=== PATIENT | female | born 1990 | race Caucasian/White ===

== ENCOUNTER → 2016-09-15 | Outpatient (REF) | payer OTHER | LOC: M LAB REF 17:14 | PROVIDERS: ATTEND Physician Assistant Medical | DX: N39.0 Urinary tract infection, site not specified (principal); R35.0 Frequency of micturition ==

== ENCOUNTER → 2017-12-22 | Outpatient (CLI) | payer OTHER | LOC: M RAD 11:02 | DX: Z30.431 Encounter for routine checking of intrauterine contraceptive device (principal) | CPT/HCPCS: 76856 ==

== ENCOUNTER → 2018-01-23 | Outpatient (CLI) | payer OTHER ==
[2018-01-23 13:32] LABS: BASO % 0.3 % (0.0-1.0); EOS # 0.1 10^3/uL (0.0-0.50); EOS % 1.5 % (0.0-3.0); HEMOGLOBIN 16.1 g/dl (12.0-15.5); IMMATURE GRANULOCYTE % 0.2 % (0-3.0); LYMPH # 2.2 10^3/uL (1.5-6.5); LYMPH % 36.5 % (24.0-44.0); MEAN CORPUSCULAR HEMOGLOBIN 30.1 pg (27.0-33.0); MEAN CORPUSCULAR HGB CONC 33.5 g/dl (32.0-36.5); MEAN CORPUSCULAR VOLUME 89.7 fl (80.0-96.0); MONO # 0.7 10^3/uL (0.0-0.8); MONO % 11.5 % (0.0-5.0); PLATELET COUNT, AUTOMATED 323 10^3/uL (150-450); RED BLOOD COUNT 5.35 10^6/uL (4.00-5.40); RED CELL DISTRIBUTION WIDTH 11.9 % (11.5-14.5); WHITE BLOOD COUNT 5.9 10^3/uL (4.0-10.0)
[2018-01-23 14:16] LABS: ANION GAP 6 MEQ/L (8-16); BLOOD UREA NITROGEN 7 MG/DL (7-18); CALCIUM LEVEL 8.9 MG/DL (8.5-10.1); CARBON DIOXIDE LEVEL 28 MEQ/L (21-32); CHLORIDE LEVEL 104 MEQ/L (98-107); CREATININE FOR GFR 0.73 MG/DL (0.55-1.30); GLOMERULAR FILTRATION RATE > 60.0 (>60); GLUCOSE, FASTING 77 MG/DL (70-100); SODIUM LEVEL 138 MEQ/L (136-145); THYROID STIMULATING HORMONE 0.331 uIU/ML (0.358-3.740)
== END ==
LOC: M LAB 12:35
DX: R51 Headache (principal)
CPT/HCPCS: 84443

== ENCOUNTER → 2018-01-25 | Outpatient (CLI) | payer OTHER ==
[2018-01-25 11:01] LABS: FREE T4 0.86 NG/DL (0.76-1.46)
[2018-01-25 11:01] LABS: THYROID STIMULATING HORMONE 0.592 uIU/ML (0.358-3.740)
== END ==
LOC: M LAB 09:25
DX: R94.6 Abnormal results of thyroid function studies (principal)
CPT/HCPCS: 84443

== ENCOUNTER 2018-10-21 09:18 | Emergency (ER) | payer OTHER ==
[~2018-10-21] VITALS: Ht 175.3 cm; Wt 63.6 kg
[2018-10-21 09:18] VITALS: BP 155/70
--- NOTE | 2018-10-21 10:13 | REP ---
Clinical: Trauma. Technique: AP, lateral, bilateral oblique views of the right ankle. Findings: No acute fracture or dislocation. Mild swelling. A 2 mm foreign body in the subcutaneous tissues posteriorly over the calcaneus. Impression: No acute fracture dislocation. Small 2 mm foreign body possibly chronic. Electronically Signed by Jose Reno MD 10/21/2018 10:05 A
--- NOTE | 2018-10-21 10:14 | REP ---
Clinical: Trauma. Technique: AP, lateral, right tibia / fibula Findings: The osseous structures and joint spaces are intact and normal. There is no evidence for acute fracture or dislocation. Surrounding soft tissues are unremarkable. No subcutaneous emphysema or radiodense foreign body. Impression: No acute fracture or dislocation. Electronically Signed by Jose Reno MD 10/21/2018 10:05 A
--- NOTE | 2018-10-23 13:16 | ED PDOC ---
Post-Departure Follow-Up dr kim faxed formal report of right ankle film for fu Hank Worley MD Oct 23, 2018 13:16
== END 2018-10-21 10:57 | disposition home or self-care (01) ==
LOC: M ED 10:27
DX: S93.401A Sprain of unspecified ligament of right ankle, initial encounter (principal); S81.811A Laceration without foreign body, right lower leg, initial encounter; S80.212A Abrasion, left knee, initial encounter; W01.198A Fall on same level from slipping, tripping and stumbling with subsequent striking against other object, initial encounter; Y92.832 Beach as the place of occurrence of the external cause; Z18.9 Retained foreign body fragments, unspecified material; E16.2 Hypoglycemia, unspecified; F17.210 Nicotine dependence, cigarettes, uncomplicated

== ENCOUNTER → 2018-11-08 | Outpatient (CLI) | payer OTHER ==
--- NOTE | 2018-11-09 02:18 | REP ---
Clinical: Right wrist pain. Technique: AP, lateral, bilateral oblique views. Findings: The carpal bones, surrounding osseous structures, soft tissues, and joint spaces are normal. There is no evidence for acute fracture or dislocation. No subcutaneous emphysema or radiodense foreign body. Impression: Normal wrist series. No acute fracture or dislocation Electronically Signed by Jose Reno MD 11/09/2018 02:09 A
== END ==
LOC: M WUC 14:12
PROVIDERS: ATTEND Physician Assistant
DX: M25.431 Effusion, right wrist (principal)

== ENCOUNTER → 2019-02-21 | Outpatient (REF) | payer OTHER ==
[2019-02-21 12:46] LABS: HEMATOCRIT 36.8 % (36.0-47.0); HEMOGLOBIN 12.2 g/dl (12.0-15.5); MEAN CORPUSCULAR HEMOGLOBIN 29.8 pg (27.0-33.0); MEAN CORPUSCULAR HGB CONC 33.2 g/dl (32.0-36.5); MEAN CORPUSCULAR VOLUME 89.8 fl (80.0-96.0); PLATELET COUNT, AUTOMATED 335 10^3/uL (150-450); WHITE BLOOD COUNT 6.1 10^3/uL (4.0-10.0)
[2019-02-21 13:35] LABS: HCG, SERUM QUANTITATIVE 129053 MIU/ML; RUBELLA IgG QUALITATIVE IMMUNE (IMMUNE)
[2019-02-21 13:44] LABS: HIV 1&2 SCREEN CENTAUR NEGATIVE (NEGATIVE)
== END ==
LOC: M LAB REF 12:21
PROVIDERS: ATTEND Nurse Practitioner Women's Health
DX: O36.80X0 Pregnancy with inconclusive fetal viability, not applicable or unspecified (principal); Z3A.00 Weeks of gestation of pregnancy not specified

== ENCOUNTER → 2019-03-22 | Outpatient (REF) | payer OTHER | LOC: M LAB REF 12:27 | PROVIDERS: ATTEND Nurse Practitioner Women's Health | DX: Z34.82 Encounter for supervision of other normal pregnancy, second trimester (principal); Z3A.00 Weeks of gestation of pregnancy not specified ==

== ENCOUNTER → 2019-07-13 | Outpatient (CLI) | payer OTHER ==
[2019-07-13 21:23] LABS: HEMATOCRIT 36.9 % (36.0-47.0); MEAN CORPUSCULAR HEMOGLOBIN 30.1 pg (27.0-33.0); MEAN CORPUSCULAR HGB CONC 32.5 g/dl (32.0-36.5); MEAN CORPUSCULAR VOLUME 92.5 fl (80.0-96.0); PLATELET COUNT, AUTOMATED 293 10^3/uL (150-450); RED BLOOD COUNT 3.99 10^6/uL (4.00-5.40); WHITE BLOOD COUNT 9.7 10^3/uL (4.0-10.0)
== END ==
LOC: M WUC 15:42
PROVIDERS: ATTEND Obstetrics & Gynecology
DX: Z34.83 Encounter for supervision of other normal pregnancy, third trimester (principal); Z3A.00 Weeks of gestation of pregnancy not specified

== ENCOUNTER → 2019-08-28 | Outpatient (REF) | payer OTHER ==
[~2019-08-28] MED LIST: IBUP80TA PO; MULTTAB20 PO; PERCOCET PO
== END ==
LOC: M LAB REF 12:19
PROVIDERS: ATTEND Obstetrics & Gynecology
DX: Z34.83 Encounter for supervision of other normal pregnancy, third trimester (principal)

== ENCOUNTER → 2019-09-19 | Outpatient (CLI) | payer OTHER ==
--- NOTE | 2019-09-21 04:45 | REP ---
Clinical: well-being Comparison: 05/01/2019 . Findings: Examination demonstrates a single live intrauterine in cephalic presentation. motion is identified by technologist. Placenta is noted fundal and grade I I I without evidence for placenta previa or abruption. Amniotic fluid volume is normal. Cervix measures 3.6 cm in length and appears closed. No evidence for nuchal cord. Gestational age by history at 40 weeks. FHR equals 136 beats per minute. Biophysical profile score: 8/8 Amniotic fluid index: 12.2 cm Impression: Single live advanced gestation in cephalic presentation. Biophysical profile score and amniotic fluid volume are normal.
== END ==
LOC: M WHC 14:55
PROVIDERS: ATTEND Obstetrics & Gynecology
DX: Z36.89 Encounter for other specified antenatal screening (principal); Z3A.40 40 weeks gestation of pregnancy

== ENCOUNTER 2019-09-21 08:11 | Inpatient (IN) | payer OTHER ==
[~2019-09-21] VITALS: Ht 175.3 cm; Wt 75.6 kg
[2019-09-21] VITALS (8 sets, daily range): BP systolic 112–125; BP diastolic 59–82
[~2019-09-21 08:11] MED LIST changes: -IBUP80TA PO; -PERCOCET PO
[2019-09-21] MEDS ORDERED: BICITRA 30ML SOLN UDC PO ONE (08:30)
[2019-09-21 09:10] LABS: HEMATOCRIT 36.4 % (36.0-47.0); HEMOGLOBIN 12.6 g/dl (12.0-15.5); MEAN CORPUSCULAR HEMOGLOBIN 30.4 pg (27.0-33.0); MEAN CORPUSCULAR HGB CONC 34.6 g/dl (32.0-36.5); MEAN CORPUSCULAR VOLUME 87.7 fl (80.0-96.0); PLATELET COUNT, AUTOMATED 232 10^3/uL (150-450); RED BLOOD COUNT 4.15 10^6/uL (4.00-5.40); WHITE BLOOD COUNT 6.5 10^3/uL (4.0-10.0)
[2019-09-21] MEDS ORDERED: LR 1,000 ML IV ONE (09:30)
[2019-09-21] MEDS ORDERED: LR 1,000 ML IV SCH ×2 (09:30→17:45)
[2019-09-21] MEDS ORDERED: ceFAZolin SOD 2 GM in IV 1 EA IV ONE (10:30)
[2019-09-21] MEDS ORDERED: NALOXONE INJ 0.4MG/1ML VIAL (J2310 PER 1MG) IV PRN ×2 (11:40)
[2019-09-21] MEDS ORDERED: NALBUPHINE HCL 10 MG/ML AMP (J2300) IV PRN (11:40)
[2019-09-21] MEDS ORDERED: ONDANSETRON 4MG/2ML VIAL IV PRN ×2 (11:40→12:45)
[2019-09-21] MEDS ORDERED: diphenhydrAMINE 50MG/ML VIAL (J1200) IV PRN (11:40)
[2019-09-21] MEDS ORDERED: OXYTOCIN 30 UNITS IN 0.9% NaCl 500ML IV BAG (J2590) As Ordered ONE ×2 (12:04→13:14)
[2019-09-21] MEDS ORDERED: MORPHINE PRES-FREE INJ 10 MG/10 ML VIAL (J2274) As Ordered ONE (12:04)
[2019-09-21] MEDS ORDERED: dexameTHASONE 4 MG/ML 1ML VIAL (J1100 PER 1MG) As Ordered ONE (12:04)
[2019-09-21] MEDS ORDERED: ONDANSETRON 4MG/2ML VIAL As Ordered ONE ×2 (12:04→13:44)
[2019-09-21] MEDS ORDERED: KETOROLAC 60 MG/2 ML VIAL As Ordered ONE (12:04)
[2019-09-21 12:08] LABS: CORD GAS ABE V -1.1; CORD GAS HCO3 V 24.9 MEQ/L; CORD GAS PCO2 V 46.4 mmHg; CORD GAS PH V 7.348 UNITS; CORD GAS PO2 V 42.2 mmHg; CORD GAS SBC V 23.2 MEQ/L; CORD GAS TCO2 V 26.4 MEQ/L
[2019-09-21] MEDS ORDERED: OXYTOCIN DRIP 30 UNITS in IV 1 EA IV SCH (12:29)
[2019-09-21] MEDS ORDERED: RHOGAM 300 MCG (1500 IU) INJ (J2790) IM SCH (12:30)
[2019-09-21] MEDS ORDERED: MEASLES,MUMPS,RUBELLA VACCINE INJ (MMR-II) (90707) SC SCH (12:30)
[2019-09-21] MEDS ORDERED: PERCOCET 5MG/325MG TAB PO PRN (12:30)
[2019-09-21] MEDS ORDERED: oxyCODONE 5MG TAB PO PRN (12:45)
[2019-09-21] MEDS ORDERED: fentaNYL 100 MCG/2 ML INJECTION (J3010) IV PRN (12:45)
[2019-09-21] MEDS: KETOROLAC 30 MG/ML 1ML VIAL IV SCH (17:51)
[2019-09-21] MEDS: METOCLOPRAMIDE INJ 10MG/2ML VIAL (J2765 PER 1) IV PRN (17:51)
[2019-09-22] MEDS: METOCLOPRAMIDE INJ 10MG/2ML VIAL (J2765 PER 1) IV PRN (00:09)
[2019-09-22] MEDS: KETOROLAC 30 MG/ML 1ML VIAL IV SCH ×3 (00:09→07:10)
[2019-09-22 02:00] VITALS: BP 116/64
[2019-09-22 06:00] VITALS: BP 110/77
[2019-09-22] MEDS ORDERED: ceFAZolin SOD 2 GM in IV 1 EA IV ONE (06:00)
[2019-09-22 07:01] LABS: HEMOGLOBIN 11.8 g/dl (12.0-15.5); MEAN CORPUSCULAR HEMOGLOBIN 30.8 pg (27.0-33.0); MEAN CORPUSCULAR HGB CONC 34.7 g/dl (32.0-36.5); MEAN CORPUSCULAR VOLUME 88.8 fl (80.0-96.0); PLATELET COUNT, AUTOMATED 215 10^3/uL (150-450); RED BLOOD COUNT 3.83 10^6/uL (4.00-5.40); WHITE BLOOD COUNT 14.1 10^3/uL (4.0-10.0)
--- NOTE | 2019-09-22 07:24 | IPNPDOC ---
Text Note Date of Service The patient was seen on 09/22/19. NOTE PO #1 Feels well. Adequate pain management. Tolerating regular diet in small amounts. Voiding. VSS, afebrile,normotensive Breasts soft, nipples intact Dressing removed. Steristrips intact. Wound well approximated without s/s infection Fundus firm Lochia rubra scant without odor PO #1 Routine care. Anticipate D/C in am VS,Fishbone, I+O VS, Fishbone, I+O Laboratory Tests 09/21/19 08:57 09/22/19 06:29 Vital Signs Date Time Temp Pulse Resp B/P (MAP) Pulse Ox O2 Delivery O2 Flow Rate FiO2 09/22/19 06:00 97.5 59 16 110/77 (88) 100 Room Air I&O- Last 24 Hours up to 6 AM 09/22/19 06:00 Intake Total 3046 ml Output Total 3225 ml Balance -179 ml Radha Cuellar CNM Sep 22, 2019 07:24
[2019-09-22] MEDS: PRENATAL VITAMINS CHEWABLE TABLET PO SCH (08:40)
[2019-09-22 10:00] VITALS: BP 117/68
[2019-09-22 14:00] VITALS: BP 104/66
[2019-09-22] MEDS: IBUPROFEN 800 MG TAB PO SCH ×2 (14:35→21:40)
[2019-09-22 18:00] VITALS: BP 113/67
[2019-09-22 21:56] VITALS: BP 115/65
[2019-09-23 05:41] VITALS: BP 119/75
[2019-09-23] MEDS: IBUPROFEN 800 MG TAB PO SCH (05:59)
[2019-09-23] MEDS: PRENATAL VITAMINS CHEWABLE TABLET PO SCH (09:34)
[2019-09-23] MEDS ORDERED: IBUP80TA PO (10:37)
[2019-09-23] MEDS ORDERED: PERCOCET PO (10:37)
--- NOTE | 2019-09-23 10:53 | DS.PDOC ---
Discharge Summary General Date of Admission Sep 21, 2019 at 08:11 Date of Discharge 09/23/19 Attending Physician: Jason Holloway DO Discharge Summary PROCEDURES PERFORMED DURING STAY: section and spinal anesthesia. ADMITTING DIAGNOSES: 1. Repeat section at term. DISCHARGE DIAGNOSES: 1 . Repeat section at term. COMPLICATIONS/CHIEF COMPLAINT: Previous Section, Term . HISTORY OF PRESENT ILLNESS: 29-year-old who presented for scheduled section for which was uncomplicated. HOSPITAL COURSE:. She did well and postoperatively. By post-operative day #2, had met all discharge criteria. Patient was discharged home in stable condition. DISCHARGE MEDICATIONS: Please see below. ALLERGIES: Please see below. PHYSICAL EXAMINATION ON DISCHARGE: VITAL SIGNS: Please see below. GENERAL:. Well-appearing ABDOMINAL EXAMINATION: Soft, appropriately tender. Fundus is below umbilicus. Incision was clean, dry, intact, well approximated with Steri-Strips EXTREMITIES: Negative calf tenderness LABORATORY DATA: Please see below. ACTIVITY: As tolerated. DIET: Regular DISCHARGE PLAN:. Discharge home with follow-up with Dr. Holloway and 2 weeks DISCHARGE INSTRUCTIONS: 1. Follow-up in 2 weeks for incision check. 2. Remain on pelvic rest for 6 weeks. 3. Reports severe pain, heavy vaginal bleeding, fever, incisional issues. DISCHARGE CONDITION: Stable. Vital Signs/I&Os Vital Signs Date Time Temp Pulse Resp B/P (MAP) Pulse Ox O2 Delivery O2 Flow Rate FiO2 09/23/19 05:41 97.7 67 18 119/75 (90) 100 09/22/19 18:00 Room Air Microbiology Microbiology 09/21/19 Respiratory Virus Panel (PCR) ([facility]) - Final, Complete Discharge Medications Scheduled Ibuprofen (Ibuprofen) 800 Mg Tablet, 800 MG PO Q8H No122/Iron/Folic Acid ( Multi Tablet) 1 Each Tablet, 1 TAB PO DAILY, (Reported) Scheduled PRN Oxycodone/Acetaminophen (Oxycodone-Acetaminophen 5-325) 1 Each Tablet, 1-2 TAB PO Q6HP PRN for MILD/MODERATE PAIN (PS 1-7) Allergies Coded Allergies: No Known Allergies (Unverified , 09/20/19) ADRIAN ONEAL MD. Sep 23, 2019 10:53
== END 2019-09-23 14:25 | disposition home or self-care (01) | DRG 540 ==
LOC: M LDI 08:11 → M OBS 14:24
PROVIDERS: ADMIT Obstetrics & Gynecology; ATTEND Obstetrics & Gynecology
PROC: 10D00Z1 Extraction of Products of Conception, Low, Open Approach (ICD-10-PCS; principal; 2019-09-21 09:30)
DX: O34.211 Maternal care for low transverse scar from previous cesarean delivery (principal); Z37.0 Single live birth; Z3A.39 39 weeks gestation of pregnancy

== ENCOUNTER → 2020-02-11 | Outpatient (CLI) | payer SELFPAY ==
[~2020-02-11] MED LIST changes: +IBUP80TA PO; +PERCOCET PO
== END ==
LOC: M LABSMTC 13:17
PROVIDERS: ATTEND Pediatrics
DX: Z20.828 Contact with and (suspected) exposure to other viral communicable diseases (principal)

== ENCOUNTER → 2020-03-08 | Outpatient (CLI) | payer SELFPAY | LOC: M LABSMTC 11:01 | PROVIDERS: ATTEND Pediatrics | DX: Z20.828 Contact with and (suspected) exposure to other viral communicable diseases (principal) ==

== ENCOUNTER 2020-07-28 19:32 | Emergency (ER) | payer OTHER, SELFPAY ==
[~2020-07-28] VITALS: Ht 175.3 cm; Wt 65.6 kg
[2020-07-28] MEDS ORDERED: PYRI1TAB5 PO (21:33)
[2020-07-28] MEDS ORDERED: BACT800T5 PO (21:33)
[2020-07-28] MEDS ORDERED: PHENAZOPYRIDINE 100 MG TAB PO ONE (21:35)
[2020-07-28] MEDS ORDERED: BACTRIM 160MG/800MG DS TAB PO ONE (21:35)
[2020-07-28 21:38] LABS: URINE PREG TEST NEGATIVE (NEGATIVE)
[2020-07-28 22:11] VITALS: BP 117/62
== END 2020-07-28 21:55 | disposition home or self-care (01) ==
LOC: M ED 19:32
DX: N39.0 Urinary tract infection, site not specified (principal)

== ENCOUNTER → 2021-10-27 | Outpatient (CLI) | payer OTHER ==
[~2021-10-27] MED LIST changes: +BACT800T5 PO; +PYRI1TAB5 PO
[2021-10-27 14:05] LABS: BASO % 0.4 % (0.0-1.0); EOS # 0.1 10^3/uL (0.0-0.5); HEMATOCRIT 38.8 % (36.0-47.0); LYMPH # 2.7 10^3/uL (1.5-5.0); LYMPH % 52.5 % (24.0-44.0); MEAN CORPUSCULAR HEMOGLOBIN 30.2 pg (27.0-33.0); MEAN CORPUSCULAR HGB CONC 33.5 g/dl (32.0-36.5); MONO # 0.6 10^3/uL (0.0-0.8); MONO % 11.1 % (2.0-8.0); NEUTROPHILS # 1.8 10^3/uL (1.5-8.5); PLATELET COUNT, AUTOMATED 290 10^3/uL (150-450); RED BLOOD COUNT 4.31 10^6/uL (4.00-5.40); WHITE BLOOD COUNT 5.2 10^3/uL (4.0-10.0)
[2021-10-27 17:00] LABS: BLOOD UREA NITROGEN 8 MG/DL (7-18); CALCIUM LEVEL 9.2 MG/DL (8.5-10.1); CARBON DIOXIDE LEVEL 24 MEQ/L (21-32); CHLORIDE LEVEL 107 MEQ/L (98-107); CREATININE FOR GFR 0.88 MG/DL (0.55-1.30); GLOMERULAR FILTRATION RATE > 60.0 (>60); GLUCOSE, FASTING 75 MG/DL (70-100); POTASSIUM SERUM 3.6 MEQ/L (3.5-5.1); SODIUM LEVEL 138 MEQ/L (136-145)
[2021-10-27 17:01] LABS: ALBUMIN 3.9 GM/DL (3.2-5.2); ALT/SGPT 16 U/L (12-78); BILIRUBIN,TOTAL 0.8 MG/DL (0.2-1.0); FREE T4 0.95 NG/DL (0.76-1.46); THYROID STIMULATING HORMONE 0.494 uIU/ML (0.358-3.740); TOTAL PROTEIN 7.2 GM/DL (6.4-8.2)
[2021-10-27 23:48] LABS: HEMOGLOBIN A1c 5.2 %
[2021-10-28 00:37] LABS: PROLACTIN 7.1 NG/ML
[2021-10-28 00:38] LABS: FOLLICLE STIMULATING HORMONE 3.8 mIU/mL
== END ==
LOC: M LAB 13:37
PROVIDERS: ATTEND Nurse Practitioner Family
DX: Z00.00 Encounter for general adult medical examination without abnormal findings (principal); E16.1 Other hypoglycemia; L68.0 Hirsutism

== ENCOUNTER → 2022-09-24 | Outpatient (CLI) | payer OTHER ==
[2022-09-24 11:38] LABS: BASO % 0.5 % (0.0-1.0); HEMATOCRIT 43.3 % (36.0-47.0); HEMOGLOBIN 14.1 g/dl (12.0-15.5); LYMPH # 1.9 10^3/uL (1.5-5.0); LYMPH % 47.3 % (24.0-44.0); MEAN CORPUSCULAR HEMOGLOBIN 29.7 pg (27.0-33.0); MEAN CORPUSCULAR HGB CONC 32.6 g/dl (32.0-36.5); MEAN CORPUSCULAR VOLUME 91.4 fl (80.0-96.0); MONO # 0.5 10^3/uL (0.0-0.8); MONO % 13.1 % (2.0-8.0); NEUTROPHILS # 1.5 10^3/uL (1.5-8.5); NEUTROPHILS % 38.1 % (36.0-66.0); PLATELET COUNT, AUTOMATED 306 10^3/uL (150-450); RED BLOOD COUNT 4.74 10^6/uL (4.00-5.40)
[2022-09-24 11:59] LABS: HEMOGLOBIN A1c 5.1 % (4.0-6.0)
[2022-09-24 12:06] LABS: ALBUMIN 4.6 G/DL (3.2-5.2); ALKALINE PHOSPHATASE 44 U/L (46-116); ALT/SGPT 9 U/L (7.0-40); AST/SGOT < 8 U/L (<34); BILIRUBIN,TOTAL 0.9 MG/DL (0.3-1.2); BLOOD UREA NITROGEN 10 MG/DL (9-23); CALCIUM LEVEL 9.4 MG/DL (8.5-10.1); CARBON DIOXIDE LEVEL 30 MMOL/L (20-31); CHLORIDE LEVEL 105 MMOL/L (98-107); CHOLESTEROL LEVEL 193 MG/DL (<200); CHOLESTEROL RISK RATIO 3.02 (<5); CREATININE FOR GFR 0.76 MG/DL (0.55-1.30); GLOMERULAR FILTRATION RATE > 60.0 (>60); GLUCOSE, FASTING 78 MG/DL (60-100); HDL CHOLESTEROL 63.8 MG/DL (>40); LDL CHOLESTEROL 117.8 MG/DL (<100); NON-HDL-C 129.2 MG/DL; SODIUM LEVEL 138 MMOL/L (136-145); TOTAL PROTEIN 7.6 G/DL (5.7-8.2); TRIGLYCERIDES LEVEL 57 MG/DL (<150)
[2022-09-24 12:08] LABS: FREE T4 1.26 NG/DL (0.89-1.76); PROLACTIN 7.12 NG/ML; THYROID STIMULATING HORMONE 0.465 uIU/ML (0.55-4.78); TOTAL 25(OH) VITAMIN D 14.3 NG/ML (20.0-100.0)
== END ==
LOC: M LAB 10:42
PROVIDERS: ATTEND Registered Nurse
DX: Z00.00 Encounter for general adult medical examination without abnormal findings (principal); E16.1 Other hypoglycemia; L68.0 Hirsutism

== ENCOUNTER 2022-12-12 04:27 | Emergency (ER) | payer OTHER ==
[~2022-12-12] VITALS: Ht 175.3 cm; Wt 62.3 kg
[2022-12-12 04:27] VITALS: TEMP 96.8
[2022-12-12 05:09] LABS: BASO % 0.3 % (0.0-1.0); EOS # 0.1 10^3/uL (0.0-0.5); EOS % 0.9 % (0.0-3.0); HEMATOCRIT 41.7 % (36.0-47.0); HEMOGLOBIN 14.1 g/dl (12.0-15.5); LYMPH # 2.8 10^3/uL (1.5-5.0); LYMPH % 40.2 % (24.0-44.0); MEAN CORPUSCULAR HEMOGLOBIN 30.3 pg (27.0-33.0); MEAN CORPUSCULAR HGB CONC 33.8 g/dl (32.0-36.5); MEAN CORPUSCULAR VOLUME 89.7 fl (80.0-96.0); MONO # 0.8 10^3/uL (0.0-0.8); NEUTROPHILS # 3.3 10^3/uL (1.5-8.5); NEUTROPHILS % 47.3 % (36.0-66.0); PLATELET COUNT, AUTOMATED 383 10^3/uL (150-450); RED BLOOD COUNT 4.65 10^6/uL (4.00-5.40); WHITE BLOOD COUNT 6.9 10^3/uL (4.0-10.0)
[2022-12-12 05:32] LABS: BLOOD UREA NITROGEN 8 MG/DL (9-23); CALCIUM LEVEL 9.2 MG/DL (8.5-10.1); CARBON DIOXIDE LEVEL 25 MMOL/L (20-31); CHLORIDE LEVEL 102 MMOL/L (98-107); GLOMERULAR FILTRATION RATE > 60.0 (>60); GLUCOSE, FASTING 177 MG/DL (60-100); POTASSIUM SERUM 3.8 MMOL/L (3.5-5.1); SODIUM LEVEL 138 MMOL/L (136-145)
[2022-12-12 05:34] LABS: THYROID STIMULATING HORMONE 2.223 uIU/ML (0.55-4.78)
[2022-12-12 10:20] LABS: ETHYL ALCOHOL (ETHANOL) < 0.003 % (0.000-0.010); HCG, SERUM QUALITATIVE NEGATIVE (NEGATIVE)
[2022-12-12] MEDS ORDERED: CEFDINIR 300 MG CAP (OMNICEF) PO ONE (10:25)
[2022-12-12 10:34] LABS: AMPHETAMINES LEVEL URINE NEGATIVE (NEGATIVE); BARBITURATES URINE NEGATIVE (NEGATIVE); COCAINE METABOLITE URINE NEGATIVE (NEGATIVE); METHADONE URINE NEGATIVE (NEGATIVE); OPIATES URINE NEGATIVE (NEGATIVE); PHENCYCLIDINE URINE NEGATIVE (NEGATIVE)
[2022-12-12 10:35] LABS: BENZODIAZEPINES URINE NEGATIVE (NEGATIVE)
[2022-12-12 10:37] LABS: CANNABINOIDS URINE POSITIVE (NEGATIVE)
[2022-12-12 11:42] VITALS: BP 118/83; O2SAT 100
[2022-12-12] MEDS ORDERED: CEFD300C PO (12:12)
[2022-12-12 12:45] LABS: GC DNA AMPLIFICATION NEGATIVE (NEGATIVE)
== END 2022-12-12 12:24 | disposition home or self-care (01) ==
LOC: M ED 04:27
DX: F30.9 Manic episode, unspecified (principal); N39.0 Urinary tract infection, site not specified; F17.200 Nicotine dependence, unspecified, uncomplicated; F10.10 Alcohol abuse, uncomplicated; Z79.2 Long term (current) use of antibiotics; Z79.810 Long term (current) use of selective estrogen receptor modulators (SERMs); Z79.899 Other long term (current) drug therapy

== ENCOUNTER → 2022-12-16 | Outpatient (REF) | payer OTHER ==
[~2022-12-16] MED LIST changes: +CEFD300C PO
== END ==
LOC: M LAB REF 17:19
PROVIDERS: ATTEND Registered Nurse
DX: Z12.4 Encounter for screening for malignant neoplasm of cervix (principal); N89.8 Other specified noninflammatory disorders of vagina

== ENCOUNTER 2023-04-07 12:41 | Inpatient (IN) | payer OTHER ==
[~2023-04-07] VITALS: Ht 175.3 cm; Wt 61.4 kg
[2023-04-07] MEDS ORDERED: LATU20TA PO (12:50)
[2023-04-07 13:37] LABS: HEMATOCRIT 39.3 % (36.0-47.0); HEMOGLOBIN 13.3 g/dl (12.0-15.5); MEAN CORPUSCULAR HGB CONC 33.8 g/dl (32.0-36.5); MEAN CORPUSCULAR VOLUME 88.5 fl (80.0-96.0); PLATELET COUNT, AUTOMATED 337 10^3/uL (150-450); RED BLOOD COUNT 4.44 10^6/uL (4.00-5.40); WHITE BLOOD COUNT 6.4 10^3/uL (4.0-10.0)
[2023-04-07 13:59] LABS: ETHYL ALCOHOL (ETHANOL) 0.007 % (0.000-0.010)
[2023-04-07 14:00] LABS: SALICYLATE LEVEL < 3.0 MG/DL (<30)
[2023-04-07 14:01] LABS: ALBUMIN 4.3 G/DL (3.2-5.2); ALKALINE PHOSPHATASE 49 U/L (46-116); ALT/SGPT < 9 U/L (7.0-40); AST/SGOT < 8 U/L (<34); BILIRUBIN,DIRECT 0.2 MG/DL (<0.4); BILIRUBIN,TOTAL 0.5 MG/DL (0.3-1.2); BLOOD UREA NITROGEN 13 MG/DL (9-23); CALCIUM LEVEL 9.4 MG/DL (8.5-10.1); CARBON DIOXIDE LEVEL 27 MMOL/L (20-31); CHLORIDE LEVEL 107 MMOL/L (98-107); CREATININE FOR GFR 0.73 MG/DL (0.55-1.30); GLOMERULAR FILTRATION RATE > 60.0 (>60); GLUCOSE, FASTING 85 MG/DL (60-100); POTASSIUM SERUM 4.1 MMOL/L (3.5-5.1); SODIUM LEVEL 139 MMOL/L (136-145); TOTAL PROTEIN 7.3 G/DL (5.7-8.2)
[2023-04-07 14:02] LABS: THYROID STIMULATING HORMONE 0.708 uIU/ML (0.55-4.78)
[2023-04-07 14:03] LABS: HCG, SERUM QUALITATIVE NEGATIVE (NEGATIVE)
[2023-04-07 15:27] LABS: AMPHETAMINES LEVEL URINE NEGATIVE (NEGATIVE); BARBITURATES URINE NEGATIVE (NEGATIVE)
[2023-04-07 15:28] LABS: BENZODIAZEPINES URINE NEGATIVE (NEGATIVE); COCAINE METABOLITE URINE NEGATIVE (NEGATIVE); METHADONE URINE NEGATIVE (NEGATIVE); OPIATES URINE NEGATIVE (NEGATIVE); PHENCYCLIDINE URINE NEGATIVE (NEGATIVE)
[2023-04-07 15:30] LABS: CANNABINOIDS URINE POSITIVE (NEGATIVE)
[2023-04-07] MEDS ORDERED: ACETAMINOPHEN TAB 650MG DOSE (2X325MG) PO PRN (16:15)
[2023-04-07] MEDS ORDERED: MOM 30ML SUSPENSION UDC PO PRN (16:15)
[2023-04-07] MEDS ORDERED: NICOTINE 21MG/24HR 1 EA TRANSDERMAL TD PRN (16:15)
[2023-04-07] MEDS ORDERED: IBUPROFEN 400MG TAB PO PRN (16:15)
[2023-04-07] MEDS ORDERED: diphenhydrAMINE 25MG CAP PO PRN (16:15)
[2023-04-07] MEDS ORDERED: MAALOX 30 ML SUSP *UDC PO PRN (16:15)
[2023-04-07 16:52] VITALS: BP 118/70; TEMP 99.2; O2SAT 100
[2023-04-07] MEDS ORDERED: HOME MED LIST COMPLETE! XX SCH (20:05)
[2023-04-07] MEDS: LURASIDONE 20 MG TAB (LATUDA) PO SCH (20:20)
[2023-04-07] MEDS: traZODone 50 MG TAB PO PRN (20:20)
[2023-04-08] MEDS: NICOTINE POLACRILEX 2 MG GUM PO PRN ×2 (11:55→16:28)
[2023-04-08] MEDS: CEFDINIR 300 MG CAP (OMNICEF) PO SCH ×2 (12:44→21:24)
[2023-04-08] MEDS ORDERED: FLUCONAZOLE 50MG TABLET PO ONE (14:00)
[2023-04-08] MEDS: LURASIDONE 20 MG TAB (LATUDA) PO SCH (18:16)
[2023-04-08] MEDS: traZODone 50 MG TAB PO PRN (21:24)
[2023-04-09] MEDS: CEFDINIR 300 MG CAP (OMNICEF) PO SCH ×2 (09:09→20:48)
[2023-04-09] MEDS: NICOTINE POLACRILEX 2 MG GUM PO PRN (09:13)
[2023-04-09] MEDS: OLANZapine ORAL DISINTEGRATING TAB 5MG PO PRN ×2 (13:27→20:55)
[2023-04-09 15:54] VITALS: BP 126/85; TEMP 98; O2SAT 99
[2023-04-09] MEDS: traZODone 50 MG TAB PO PRN (20:48)
[2023-04-10] MEDS: LURASIDONE HCL 40MG TAB (LATUDA) PO SCH (07:48)
[2023-04-10] MEDS: CEFDINIR 300 MG CAP (OMNICEF) PO SCH ×2 (08:59→20:50)
[2023-04-10] MEDS: OLANZapine ORAL DISINTEGRATING TAB 5MG PO PRN ×2 (12:03→19:28)
[2023-04-10] MEDS: NICOTINE POLACRILEX 2 MG GUM PO PRN ×2 (12:04→20:58)
[2023-04-10 15:31] VITALS: BP 105/60; TEMP 98.6; O2SAT 100
[2023-04-10] MEDS: traZODone 50 MG TAB PO PRN (20:57)
[2023-04-11] MEDS: LURASIDONE HCL 40MG TAB (LATUDA) PO SCH (08:15)
[2023-04-11] MEDS: CEFDINIR 300 MG CAP (OMNICEF) PO SCH (08:15)
[2023-04-11] MEDS ORDERED: TRAZ-252 PO (10:12)
[2023-04-11] MEDS ORDERED: NICO2GUM PO (10:12)
[2023-04-11] MEDS ORDERED: OLAN5ZYD PO (10:12)
[2023-04-11] MEDS ORDERED: LATU40TA2 PO (10:12)
[2023-04-11] MEDS ORDERED: CEFD300CAP PO (10:12)
== END 2023-04-11 11:42 | disposition home or self-care (01) | DRG 753 ==
LOC: M ED 12:41 → M ED INP 16:14 → M PSY 18:23
PROVIDERS: ADMIT Student in an Organized Health Care Education/Training Program; ATTEND Student in an Organized Health Care Education/Training Program
DX: F31.9 Bipolar disorder, unspecified (principal); N39.0 Urinary tract infection, site not specified; F60.3 Borderline personality disorder; F43.21 Adjustment disorder with depressed mood; F17.290 Nicotine dependence, other tobacco product, uncomplicated; Z81.8 Family history of other mental and behavioral disorders; Z63.8 Other specified problems related to primary support group; Z79.899 Other long term (current) drug therapy; Z20.822 Contact with and (suspected) exposure to COVID-19; Z90.49 Acquired absence of other specified parts of digestive tract

== ENCOUNTER → 2023-08-31 | Outpatient (CLI) | payer OTHER ==
[~2023-08-31] MED LIST changes: +CEFD300CAP PO; +LATU20TA PO; +LATU40TA2 PO; +NICO2GUM PO; +OLAN5ZYD PO; +TRAZ-252 PO
== END ==
LOC: M RAD 13:32
PROVIDERS: ATTEND Registered Nurse
DX: R22.1 Localized swelling, mass and lump, neck (principal)

== ENCOUNTER → 2024-06-11 | Outpatient (CLI) | payer OTHER ==
[2024-06-11 15:10] LABS: BASO % 0.7 % (0.0-1.0); EOS % 0.7 % (0.0-3.0); HEMOGLOBIN 13.5 g/dl (12.0-15.5); LYMPH % 49.5 % (24.0-44.0); MEAN CORPUSCULAR HGB CONC 33.8 g/dl (32.0-36.5); MEAN CORPUSCULAR VOLUME 88.9 fl (80.0-96.0); MONO # 0.6 10^3/uL (0.0-0.8); MONO % 14.4 % (2.0-8.0); NEUTROPHILS # 1.4 10^3/uL (1.5-8.5); NEUTROPHILS % 34.7 % (36.0-66.0); PLATELET COUNT, AUTOMATED 361 10^3/uL (150-450)
[2024-06-11 15:32] LABS: ERYTHROCYTE SEDIMENTATION RATE 5 mm/hr (0-20)
[2024-06-11 15:34] LABS: RHEUMATOID FACTOR QUANT < 3.5 IU/ML (<14)
[2024-06-11 15:35] LABS: ALBUMIN 4.2 G/DL (3.2-5.2); ALKALINE PHOSPHATASE 48 U/L (35-104); ALT/SGPT 10 U/L (7.0-40); AST/SGOT 10 U/L (<34); BILIRUBIN,TOTAL 0.6 MG/DL (0.3-1.2); BLOOD UREA NITROGEN 6 MG/DL (9-23); C REACTIVE PROTEIN QUANTITATIV < 0.50 MG/DL (<1.0); CALCIUM LEVEL 8.8 MG/DL (8.5-10.1); CARBON DIOXIDE LEVEL 27 MMOL/L (20-31); CHLORIDE LEVEL 105 MMOL/L (98-107); CREATININE FOR GFR 0.63 MG/DL (0.55-1.30); GLOMERULAR FILTRATION RATE > 60.0 (>60); GLUCOSE, FASTING 95 MG/DL (60-100); POTASSIUM SERUM 4.1 MMOL/L (3.5-5.1); SODIUM LEVEL 141 MMOL/L (136-145); TOTAL PROTEIN 7.3 G/DL (5.7-8.2)
[2024-06-11 15:36] LABS: THYROID STIMULATING HORMONE 0.304 uIU/ML (0.55-4.78)
[2024-06-11 15:37] LABS: THYROID PEROXIDASE ANTIBODY < 28.0 U/ML (<60.0)
[2024-06-13 10:27] LABS: INSULIN TOTAL2 10.7 uIU/mL (<=18.4)
[2024-06-13 14:27] LABS: CYCLIC CITRULLINATED PEPTIDE < 16 UNITS (<20)
[2024-06-13 17:47] LABS: ANA SCREEN, IFA NEGATIVE (NEGATIVE)
== END ==
LOC: M LAB 14:16
PROVIDERS: ATTEND Registered Nurse
DX: E16.1 Other hypoglycemia (principal)

== ENCOUNTER → 2024-08-30 | Outpatient (CLI) | payer OTHER ==
[2024-08-30 17:09] LABS: FREE T4 1.36 NG/DL (0.89-1.76)
[2024-08-30 17:10] LABS: THYROID PEROXIDASE ANTIBODY < 28.0 U/ML (<60.0); THYROID STIMULATING HORMONE 0.912 uIU/ML (0.55-4.78)
== END ==
LOC: M LAB 16:04
PROVIDERS: ATTEND Registered Nurse
DX: R42 Dizziness and giddiness (principal)